=== PATIENT | female | born 1995 | race Caucasian/White ===

== ENCOUNTER 2018-10-27 13:29 | Outpatient (CLI) | payer OTHER ==
--- NOTE | 2018-10-28 14:17 | XRAY Report ---
Reason: NECK PAIN,ACUTE Procedure Date: 10/27/2018 Accession Number: [id number] / [id number] Procedure: WCP - Cervical Spine 2 View CPT Code: FULL RESULT: EXAM: CERVICAL SPINE RADIOGRAPHY EXAM DATE: 10/27/2018 01:42 PM. CLINICAL HISTORY: Neck pain, acute. COMPARISONS: None. TECHNIQUE: 3 views. FINDINGS: Alignment: Straightening of the normal cervical lordosis. No spondylolisthesis. No scoliosis. Bones: No acute fracture. No bony lesions. Odontoid is intact where visualized. There are small bilateral C7 cervical ribs. Disks: Normal. Disk heights are maintained. Facets: No degenerative disease. Soft Tissues: Normal. No prevertebral soft tissue swelling. The visualized lung apices are clear. IMPRESSION: 1. Small bilateral C7 cervical ribs. Otherwise, no other cervical spine abnormalities are identified. RADIA
== END 2018-10-27 13:30 | disposition home or self-care (01) ==
LOC: DI.WCP 13:29
PROVIDERS: ATTEND Family Medicine
DX: M54.2 Cervicalgia (principal)
CPT/HCPCS: 72040

== ENCOUNTER 2019-01-21 08:00 | Outpatient (CLI) | payer OTHER | END 2019-01-21 23:59 | disposition home or self-care (01) | LOC: LAB.WCP 08:00 | PROVIDERS: ATTEND Physician Assistant | DX: F41.9 Anxiety disorder, unspecified (principal) | CPT/HCPCS: 36415; 84443 ==

== ENCOUNTER 2019-08-02 20:32 | Emergency (ER) | payer OTHER ==
[2019-08-02] MEDS: LIDOCAINE VISCOUS 2% 15 ML UDC MM STA (21:10)
[2019-08-02] MEDS: MAG HYDROX/AL HYDROX/SIMETH 30 ML UDC PO STA (21:10)
[2019-08-02 21:16] LABS: BASOPHILS % (AUTO) 0.3 %; EOSINOPHILS # (AUTO) 0.2 10^3/uL (0.0-0.7); EOSINOPHILS % (AUTO) 2.7 %; HGB - HEMOGLOBIN 12.6 g/dL (12.0-16.0); LYMPHOCYTES # (AUTO) 2.2 10^3/uL (1.5-3.5); LYMPHOCYTES % (AUTO) 32.3 %; MEAN CORPUSCULAR HEMOGLOBIN 29.9 pg (27.0-31.0); MEAN CORPUSCULAR HGB CONC 32.8 g/dL (32.0-36.0); MEAN PLATELET VOLUME 9.6 fL (7.9-10.8); MONOCYTES # (AUTO) 0.5 10^3/uL (0.0-1.0); MONOCYTES % (AUTO) 7.2 %; NEUTROPHILS % (AUTO) 57.2 %; PLT - PLATELET COUNT 230 10^3/uL (130-450); RED BLOOD COUNT 4.22 10^6/uL (4.20-5.40); RED CELL DISTRIBUTION WIDTH 13.1 % (12.0-15.0); WHITE BLOOD COUNT 6.9 x10^3/uL (4.8-10.8)
--- NOTE | 2019-08-02 21:19 | ED Physician Documentation ---
PD HPI CHEST PAIN - Stated complaint Stated Complaint: CP - Chief complaint Chief Complaint: Cardiac - History obtained from History obtained from: Patient - History of Present Illness Timing - onset: Other (24-year-old woman who about an hour ago started having intermittent sharp pain of the sternum and and under both breasts and around to the back. Is worse when she takes a deep breath. It lasts for minutes at a time and has been coming and going without particular inciting or relieving factors. She was rest when it started. She denies shortness of breath, calf pain, control use, pedal edema. No cough. She is never had anything like this before. She has a history of asthma. No family heart history.) Review of Systems Constitutional: denies: Fever, Chills Throat: denies: Sore throat Cardiac: reports: Chest pain / pressure. denies: Palpitations, Pedal edema, Calf pain Respiratory: denies: Dyspnea, Cough GI: denies: Abdominal Pain PD PAST MEDICAL HISTORY - Past Medical History Past Medical History: Yes Other Past Medical History: HHT - Past Surgical History Past Surgical History: Yes General: Cholecystectomy /[employer]ER: section - Present Medications Home Medications: Ambulatory Orders Medication Instructions Recorded Confirmed Albuterol Sulfate [Albuterol 8.5 gm IH DAILY 08/02/19 08/02/19 Sulfate Hfa] Famotidine [Pepcid] 20 mg PO BID #60 tablet 08/02/19 Fluticasone/Salmeterol [Advair 1 each IH DAILY 08/02/19 08/02/19 100-50 Diskus] Montelukast [Singulair] 10 mg PO QPM 08/02/19 08/02/19 Sertraline [Zoloft] 25 mg PO DAILY 08/02/19 08/02/19 Tiotropium [place] [Spiriva] 1 puffs INH DAILY 08/02/19 08/02/19 - Allergies Allergies/Adverse Reactions: Allergies Allergy/AdvReac Type Severity Reaction Status Date / Time No Known Drug Allergies Allergy Verified 08/02/19 20:40 - Social History Does the pt smoke?: No Smoking Status: Never smoker Does the pt drink ETOH?: No Does the pt have substance abuse?: No - Immunizations Immunizations are current?: Yes - POLST Patient has POLST: No PD ED PE NORMAL - Vitals Vital signs reviewed: Yes - General General: Alert and oriented X 3, No acute distress - HEENT HEENT: Pharynx benign - Neck Neck: Supple, no meningeal sign, No bony TTP - Cardiac Cardiac: RRR, No murmur - Respiratory Respiratory: No respiratory distress, Clear bilaterally, Other (Sternum nontender) - Abdomen Abdomen: Other (Abdomen nontender, no she is status post remote cholecystectomy) - Extremities Extremities: No edema, No calf tenderness / cord - Neuro Neuro: Alert and oriented X 3, Normal speech Results - Vitals Vitals: Vital Signs - 24 hr 08/02/19 08/02/19 08/02/19 20:36 20:53 20:57 Temperature 36.8 C Heart Rate 97 74 83 Respiratory 18 12 13 Rate Blood Pressure 121/91 H 109/75 100/75 O2 Saturation 99 100 100 08/02/19 21:27 Temperature Heart Rate 87 Respiratory 12 Rate Blood Pressure 105/65 O2 Saturation 100 Oxygen O2 Source Room air - EKG (time done) 2046 Rate: Rate (enter#) (86) Rhythm: NSR [place]: Normal Intervals: Normal [place] QRS: Normal Ischemia: Normal ST segments Computer interpretation: Agree with computer - Labs Labs: Laboratory Tests 08/02/19 08/02/19 08/02/19 21:10 21:10 21:10 WBC 6.9 RBC 4.22 Hgb 12.6 Hct 38.4 MCV 91.0 MCH 29.9 MCHC 32.8 RDW 13.1 Plt Count 230 MPV 9.6 Neut # (Auto) 4.0 Lymph # (Auto) 2.2 [place] # (Auto) 0.5 Eos # (Auto) 0.2 Baso # (Auto) 0.0 Absolute Nucleated RBC 0.00 Nucleated RBC % 0.0 D-Dimer 358.5 H Sodium 136 Potassium 3.4 L Chloride 103 Carbon Dioxide 23 Anion Gap 10.0 BUN 15 Creatinine 0.5 Estimated GFR (MDRD) 150 Glucose 91 Calcium 9.2 Total Bilirubin 0.7 AST 25 ALT 27 Alkaline Phosphatase 54 Troponin I High Sens Total Protein 8.3 H Albumin 4.5 Globulin 3.8 Albumin/Globulin Ratio 1.2 Lipase 32 08/02/19 21:10 WBC RBC Hgb Hct MCV MCH MCHC RDW Plt Count MPV Neut # (Auto) Lymph # (Auto) [place] # (Auto) Eos # (Auto) Baso # (Auto) Absolute Nucleated RBC Nucleated RBC % D-Dimer Sodium Potassium Chloride Carbon Dioxide Anion Gap BUN Creatinine Estimated GFR (MDRD) Glucose Calcium Total Bilirubin AST ALT Alkaline Phosphatase Troponin I High Sens < 2.3 L Total Protein Albumin Globulin Albumin/Globulin Ratio Lipase PD MEDICAL DECISION MAKING - ED course ED course: 24-year-old woman with acute atypical chest pain. Heart score is 0. Was borderline tachycardic and therefore d-dimer was done and mildly positive. Follow-up CT ordered. Preliminary view by me suggests no pathology there. Care to Dr. Jean Baptiste at shift change to follow-up on CT. She can be safely discharged in my opinion if the CT is negative. She did feel much better after a GI cocktail. Given the episodic nature and quality I suspect she is having esophageal spasm. Departure - Departure Clinical Impression: Atypical chest pain Condition: Good Record reviewed to determine appropriate education?: Yes Instructions: ED Chest Pain NonCardiac Prescriptions: Famotidine [Pepcid] 20 mg PO BID #60 tablet Comments: Call your doctor to arrange a follow-up appointment, make the next available appointment. In the interim, return anytime if worse or if new symptoms develop.
--- NOTE | 2019-08-02 21:26 | XRAY Report ---
Reason: chest pain Procedure Date: 08/02/2019 Accession Number: [id number] / [id number] Procedure: XR - Chest 2 View X-Ray CPT Code: 04364 Final Report FULL RESULT: EXAM: CHEST RADIOGRAPHY EXAM DATE: 08/02/2019 09:19 PM. CLINICAL HISTORY: Chest pain. COMPARISON: None. TECHNIQUE: 2 views. FINDINGS: Lungs/Pleura: No focal opacities evident. No pleural effusion. No pneumothorax. Normal volumes. Mediastinum: Heart and mediastinal contours are unremarkable. Other: Right upper quadrant clips. ECG leads overlie the chest. IMPRESSION: No acute cardiopulmonary abnormality. RADIA
[2019-08-02 21:28] LABS: ALBUMIN 4.5 g/dL (3.2-5.5); ALBUMIN/GLOBULIN RATIO 1.2 (1.0-2.2); BILIRUBIN,TOTAL 0.7 mg/dL (0.2-1.0); CALCIUM 9.2 mg/dL (8.5-10.3); CREATININE 0.5 mg/dL (0.4-1.0); TOTAL PROTEIN 8.3 g/dL (6.7-8.2)
[2019-08-02] MEDS ORDERED: IOVERSOL 320 100 ML VIAL IVP ONE (21:57)
[2019-08-02] MEDS: IOVERSOL 320 100 ML VIAL IVP ONE (22:28)
--- NOTE | 2019-08-02 23:06 | CT Report ---
Reason: chest pain, aorta protocol Procedure Date: 08/02/2019 Accession Number: [id number] / [id number] Procedure: CT - ANGIO CHEST W/WO CPT Code: Final Report FULL RESULT: EXAM: CT ANGIOGRAM CHEST EXAM DATE: 08/02/2019 10:25 PM. CLINICAL HISTORY: Chest pain, aorta protocol. COMPARISON: None. TECHNIQUE: Routine helical imaging was performed through the chest in the pulmonary arterial phase. IV Contrast: OPTIRAY 320. Reconstructions: Coronal 3-D MIP reconstructions. Sagittal and coronal. In accordance with CT protocol optimization, one or more of the following dose reduction techniques were utilized for this exam: automated exposure control, adjustment of mA and/or KV based on patient size, or use of iterative reconstructive technique. FINDINGS: Pulmonary Arteries: Diagnostic quality: Adequate through the segmental arteries. No evidence for acute or chronic pulmonary emboli. RV/LV is within normal limits. There is no interventricular septal bowing. There is no reflux of contrast material in the IVC. Lungs/Pleura: No consolidation, nodules, or edema. No effusions or pneumothorax. Mediastinum: Normal. No cardiac enlargement or adenopathy. Thoracic Aorta: Unremarkable. Upper Abdomen: Unremarkable. Other: None. IMPRESSION: Normal pulmonary CT angiogram. No pulmonary emboli. RADIA
[2019-08-02 23:26] VITALS: BP 102/71
--- NOTE | 2019-08-02 23:31 | ED Physician Documentation ---
ED Addendum - Addendum Addendum: 08/02/19 23:31 Received s/o from Dr. Owens at end of his shift and pending CT angio results. Patient presented to ED for sharp pleuritic CP that started approximately [address] angio results interpreted by radiologist as "normal pulmonary CT angiogram. No pulmonary emboli." I discussed this result w/patient. She is AAOx3 and in NAD. Vital signs stable including 97% pulse ox room air and normal pulse rate. She is comfortable with d/c home. She asks about taking an antacid, and RN provides her with famotidine rx printed by Dr. Owens. 08/02/19 23:35
== END 2019-08-02 23:26 | disposition home or self-care (01) ==
LOC: ED 20:32
DX: R07.89 Other chest pain (principal); J45.909 Unspecified asthma, uncomplicated; R79.1 Abnormal coagulation profile
CPT/HCPCS: 36415; 71046; 71275; 80053; 83690; 84484; 85025; 85379; 93005; 99284; A9270; Q9967

== ENCOUNTER 2020-01-12 08:00 | Outpatient (CLI) | payer OTHER | END 2020-01-12 23:59 | disposition home or self-care (01) | LOC: LAB.R 08:00 | PROVIDERS: ATTEND Physician Assistant | DX: R30.0 Dysuria (principal) | CPT/HCPCS: 87086 ==

== ENCOUNTER 2020-04-23 09:24 | Outpatient (CLI) | payer OTHER ==
[2020-04-23] MEDS ORDERED: ALBUTEROL 1 PUFF INH STA (11:17)
== END 2020-04-23 09:25 | disposition home or self-care (01) ==
LOC: RT 09:24
PROVIDERS: ATTEND Family Medicine
DX: J45.40 Moderate persistent asthma, uncomplicated (principal)
CPT/HCPCS: 94060; 94729

== ENCOUNTER 2020-05-12 09:03 | Outpatient (CLI) | payer OTHER ==
[2020-05-12] MEDS ORDERED: GADOBUTROL 7.5 MMOL/7.5 ML VIAL ONE (09:59)
[2020-05-12] MEDS ORDERED: GADOBUTROL 7.5 MMOL/7.5 ML VIAL IVP ONE (10:32)
--- NOTE | 2020-05-12 10:49 | MRI Report ---
PROCEDURE: Brain W/WO INDICATIONS: HEREDITARY HEMORRHAGIC TELANGIECTASIA CONTRAST: IV CONTRAST: Gadavist ml: 7 TECHNIQUE: Noncontrast axial T1 spin echo, axial T2 fast spin echo, sagittal and axial FLAIR, coronal T2 fast sp in echo, axial gradient echo, axial diffusion and ADC through the brain. After the administration of contrast, axial and coronal T1 spin echo with fat saturation through the brain. COMPARISON: None. FINDINGS: Image quality: Excellent. CSF spaces: Basal cisterns are patent. No extra-axial fluid collections. Ventricles are normal in size and shape. Brain: No midline shift. No intracranial bleeds or masses. No abnormal intracranial enhancement. There is cerebral volume loss for age. There is periventricular white matter chronic small vessel is chemic change. The brainstem appears normal. Diffusion-weighted images demonstrate no acute ischemi c insults. No chronic ischemic insults. Normal intravascular flow voids are present. Skull and face: Calvarial marrow is normal in signal. Orbits appear normal. Sinuses: Minimal to mild areas of mucosal thickening can be seen within the paranasal sinuses. No sig nificant abnormal fluid can be seen within the mastoid air cells or within the middle ear cavities. IMPRESSION: Unremarkable intracranial study. No areas of abnormal enhancement can be seen. To the limits of this standard protocol study, no findi ngs of AVM can be seen. Reviewed by: Eliecer Kulkarni MD on 05/12/2020 9:48 AM [facility] Approved by: Eliecer Kulkarni MD on 05/12/2020 9:48 AM [facility] Station ID: [id number]
== END 2020-05-12 09:04 | disposition home or self-care (01) ==
LOC: DI 09:03
PROVIDERS: ATTEND Physician Assistant
DX: I78.0 Hereditary hemorrhagic telangiectasia (principal)
CPT/HCPCS: 70553; 93306; A9585

== ENCOUNTER 2020-06-13 08:00 | Outpatient (CLI) | payer OTHER ==
[2020-06-13 18:07] LABS: BASOPHILS % (AUTO) 0.4 %; EOSINOPHILS # (AUTO) 0.1 10^3/uL (0.0-0.7); EOSINOPHILS % (AUTO) 1.1 %; HCT - HEMATOCRIT 40.4 % (37.0-47.0); LYMPHOCYTES # (AUTO) 1.5 10^3/uL (1.5-3.5); LYMPHOCYTES % (AUTO) 22.1 %; MEAN CORPUSCULAR HEMOGLOBIN 29.6 pg (27.0-31.0); MEAN CORPUSCULAR HGB CONC 32.2 g/dL (32.0-36.0); MEAN PLATELET VOLUME 11.1 fL (7.9-10.8); MONOCYTES # (AUTO) 0.4 10^3/uL (0.0-1.0); MONOCYTES % (AUTO) 6.3 %; NEUTROPHILS # (AUTO) 4.9 10^3/uL (1.5-6.6); NEUTROPHILS % (AUTO) 69.8 %; PLT - PLATELET COUNT 271 10^3/uL (130-450); RED BLOOD COUNT 4.39 10^6/uL (4.20-5.40); RED CELL DISTRIBUTION WIDTH 12.7 % (12.0-15.0)
[2020-06-13 18:25] LABS: ALBUMIN 4.7 g/dL (3.2-5.5); ALBUMIN/GLOBULIN RATIO 1.3 (1.0-2.2); BILIRUBIN,TOTAL 0.7 mg/dL (0.2-1.0); CALCIUM 9.5 mg/dL (8.5-10.3); CREATININE 0.6 mg/dL (0.4-1.0); POTASSIUM 3.2 mmol/L (3.5-5.0); TOTAL PROTEIN 8.3 g/dL (6.7-8.2)
[2020-06-13 18:33] LABS: THYROID STIMULATING HORMONE 2.38 uIU/mL (0.34-5.60)
== END 2020-06-13 23:59 | disposition home or self-care (01) ==
LOC: LAB.WCP 08:00
PROVIDERS: ATTEND Physician Assistant Medical
DX: I78.0 Hereditary hemorrhagic telangiectasia (principal); Z84.81 Family history of carrier of genetic disease; F41.9 Anxiety disorder, unspecified; F32.9 Major depressive disorder, single episode, unspecified
CPT/HCPCS: 36415; 80053; 84443; 85025

== ENCOUNTER 2020-08-04 16:36 | Outpatient (CLI) | payer OTHER ==
[2020-08-04 18:12] LABS: BASOPHILS % (AUTO) 0.3 %; EOSINOPHILS # (AUTO) 0.1 10^3/uL (0.0-0.7); EOSINOPHILS % (AUTO) 1.9 %; HCT - HEMATOCRIT 39.4 % (37.0-47.0); HGB - HEMOGLOBIN 12.8 g/dL (12.0-16.0); LYMPHOCYTES # (AUTO) 1.6 10^3/uL (1.5-3.5); LYMPHOCYTES % (AUTO) 23.5 %; MEAN CORPUSCULAR HEMOGLOBIN 29.4 pg (27.0-31.0); MEAN CORPUSCULAR HGB CONC 32.5 g/dL (32.0-36.0); MEAN CORPUSCULAR VOLUME 90.6 fL (81.0-99.0); MEAN PLATELET VOLUME 10.6 fL (7.9-10.8); MONOCYTES # (AUTO) 0.6 10^3/uL (0.0-1.0); MONOCYTES % (AUTO) 8.8 %; NEUTROPHILS # (AUTO) 4.4 10^3/uL (1.5-6.6); NEUTROPHILS % (AUTO) 65.2 %; PLT - PLATELET COUNT 277 10^3/uL (130-450); RED BLOOD COUNT 4.35 10^6/uL (4.20-5.40); RED CELL DISTRIBUTION WIDTH 13.1 % (12.0-15.0); WHITE BLOOD COUNT 6.7 x10^3/uL (4.8-10.8)
[2020-08-04 18:19] LABS: CALCIUM 9.3 mg/dL (8.5-10.3); CREATININE 0.5 mg/dL (0.4-1.0); POTASSIUM 3.7 mmol/L (3.5-5.0)
== END 2020-08-04 23:59 | disposition home or self-care (01) ==
LOC: LAB.N 16:36
PROVIDERS: ATTEND Physician Assistant Medical
DX: Z32.00 Encounter for pregnancy test, result unknown (principal); Z86.2 Personal history of diseases of the blood and blood-forming organs and certain disorders involving the immune mechanism
CPT/HCPCS: 36415; 80048; 84702; 85025

== ENCOUNTER 2020-08-08 08:00 | Outpatient (CLI) | payer OTHER ==
[2020-08-08 16:11] LABS: MUDS CUTOFF CONCENTRATIONS CUTOFF CONC BELOW:
[2020-08-08 16:39] LABS: BILIRUBIN,URINE NEGATIVE (NEGATIVE); GLUCOSE, URINE (UA) NEGATIVE (NEGATIVE); KETONES,URINE (UA) NEGATIVE (NEGATIVE); LEUKOCYTE ESTERASE, URINE NEGATIVE (NEGATIVE); NITRITE,URINE NEGATIVE (NEGATIVE); OCCULT BLOOD,URINE TRACE-INTA (NEGATIVE); PH,URINE 5.5 PH (5.0-7.5); PROTEIN,URINE NEGATIVE (NEGATIVE); UROBILINOGEN,URINE 0.2 (NORMAL) E.U./dL (NORMAL)
[2020-08-08 16:42] LABS: CLARITY,URINE CLEAR (CLEAR)
[2020-08-08 16:44] LABS: AMPHETAMINE SCREEN,URINE NEGATIVE (NEGATIVE); BENZODIAZEPINES SCREEN, URINE NEGATIVE (NEGATIVE); COCAINE SCREEN URINE NEGATIVE (NEGATIVE); METHADONE SCREEN, URINE NEGATIVE (NEGATIVE); METHAMPHETAMINES SCREEN, URINE NEGATIVE (NEGATIVE); OPIATE SCREEN, URINE NEGATIVE (NEGATIVE); THC CANNABINOID SCREEN, URINE NEGATIVE (NEGATIVE); TRICYCLIC ANTIDEPRESSANT,URINE NEGATIVE (NEGATIVE)
[2020-08-08 16:45] LABS: BARBITURATE SCREEN,UR NEGATIVE (NEGATIVE); OXYCODONE SCREEN, URINE NEGATIVE (NEGATIVE); PROPOXYPHENE SCREEN, URINE NEGATIVE (NEGATIVE)
[2020-08-08 17:03] LABS: BACTERIA,URINE Many /HPF (None Seen); RBC,URINE 0-5 /HPF (0-5); SQUAMOUS EPITHELIAL CELL,UR MANY Squamous (<= Few); WBC,URINE 0-3 /HPF (0-5)
== END 2020-08-08 23:59 | disposition home or self-care (01) ==
LOC: LAB.WC 08:00
PROVIDERS: ATTEND Obstetrics & Gynecology
DX: Z32.01 Encounter for pregnancy test, result positive (principal)
CPT/HCPCS: 80306; 81001; 87086

== ENCOUNTER 2020-08-12 18:58 | Outpatient (CLI) | payer OTHER ==
--- NOTE | 2020-08-13 10:39 | Ultrasound Report ---
PROCEDURE: OB First Trimester w/TV INDICATIONS: POSITIVE TEST OUTSIDE/PRIOR DATING DATA: Last menstrual period (LMP): 06/21/2020. LMP-based estimated date of delivery (JANN): 03/28/2021. First dating scan (date and location): 08/12/2020. Estimated date of delivery (JANN) from first dating scan: 03/31/2021. TECHNIQUE: Real-time scanning was performed of the fetus and maternal pelvic organs, with image documentation. Endovaginal scanning was also performed to better visualize the fetus and maternal ovaries. COMPARISON: None. FINDINGS: Embryo: There is a single living intrauterine gestation with the estimated gestational age 7 weeks 0 day. cardiac activity is present with heart rate 133 BPM. A yolk sac is present. A small subchorionic bleed is present measuring 1.8 x 0.4 x 0.5 cm. Cervix is closed. Measurement variability in dating: +/- 4 weeks by LMP, +/- 7 days by mean sac diameter (use before 6 weeks gestation if crown-rump length not able to be measured), +/- 5 days by crown-rump length (6-12 weeks gestation). Maternal organs: There is a corpus luteal cyst in the right ovary measuring 1.2 x 0.9 x 0.9 cm. Ovari es are grossly normal. IMPRESSION: 1. A single living IUP with the estimated gestational age 7 weeks 0 day. Ultrasound JANN 03/31/2021. 2. A small subchorionic bleed is present. 3. Cervix is closed. 4. A corpus luteal cyst in the right ovary. Ovaries are grossly normal. Reviewed by: Jason Vogel MD on 08/13/2020 10:37 AM PDT Approved by: Jason Vogel MD on 08/13/2020 10:37 AM PDT Station ID: [id number]
== END 2020-08-12 18:59 | disposition home or self-care (01) ==
LOC: DI 18:58
PROVIDERS: ATTEND Obstetrics & Gynecology
DX: O20.8 Other hemorrhage in early pregnancy (principal); O34.81 Maternal care for other abnormalities of pelvic organs, first trimester; N83.11 Corpus luteum cyst of right ovary; Z3A.01 Less than 8 weeks gestation of pregnancy

== ENCOUNTER 2020-08-29 08:00 | Outpatient (CLI) | payer OTHER ==
[2020-08-29 22:11] LABS: CHLAMYDIA TRACHOMATIS DNA NEGATIVE (NEGATIVE); NEISSERIA GONORRHOEAE DNA NEGATIVE (NEGATIVE); TRICHOMONAS VAGINALIS DNA NEGATIVE (NEGATIVE)
== END 2020-08-29 23:59 | disposition home or self-care (01) ==
LOC: LAB.R 08:00
PROVIDERS: ATTEND Obstetrics & Gynecology
DX: Z36.89 Encounter for other specified antenatal screening (principal)
CPT/HCPCS: 87491; 87591; 87661

== ENCOUNTER 2020-08-29 10:08 | Outpatient (CLI) | payer OTHER ==
[2020-08-29 10:24] LABS: BASOPHILS % (AUTO) 0.3 %; EOSINOPHILS # (AUTO) 0.1 10^3/uL (0.0-0.7); HGB - HEMOGLOBIN 12.6 g/dL (12.0-16.0); LYMPHOCYTES # (AUTO) 1.4 10^3/uL (1.5-3.5); LYMPHOCYTES % (AUTO) 20.4 %; MEAN CORPUSCULAR HGB CONC 33.2 g/dL (32.0-36.0); MEAN CORPUSCULAR VOLUME 90.5 fL (81.0-99.0); MEAN PLATELET VOLUME 9.8 fL (7.9-10.8); MONOCYTES # (AUTO) 0.5 10^3/uL (0.0-1.0); MONOCYTES % (AUTO) 7.3 %; NEUTROPHILS # (AUTO) 4.7 10^3/uL (1.5-6.6); NEUTROPHILS % (AUTO) 70.7 %; PLT - PLATELET COUNT 217 10^3/uL (130-450); RED CELL DISTRIBUTION WIDTH 13.3 % (12.0-15.0); WHITE BLOOD COUNT 6.7 x10^3/uL (4.8-10.8)
[2020-08-30 07:42] LABS: HIV AG/AB 4TH GEN NON-REACTIVE (NON-REACTIVE)
[2020-08-30 12:07] LABS: HEPATITIS B SURFACE ANTIGEN NON-REACTIVE (NON-REACTIVE)
[2020-08-30 12:08] LABS: HEPATITIS C ANTIBODY NON-REACTIVE (NON-REACTIVE)
== END 2020-08-29 10:09 | disposition home or self-care (01) ==
LOC: LAB 10:08
PROVIDERS: ATTEND Obstetrics & Gynecology
DX: Z36.89 Encounter for other specified antenatal screening (principal)
CPT/HCPCS: 36415; 85025; 86592; 86762; 86787; 86803; 86850; 86900; 86901; 87340; 87389; 87491; 87591; 87661

== ENCOUNTER 2020-12-28 19:15 | Outpatient (CLI) | payer OTHER ==
[2020-12-28 19:51] LABS: BASOPHILS % (AUTO) 0.3 %; EOSINOPHILS # (AUTO) 0.1 10^3/uL (0.0-0.7); EOSINOPHILS % (AUTO) 0.9 %; HCT - HEMATOCRIT 34.5 % (37.0-47.0); HGB - HEMOGLOBIN 11.3 g/dL (12.0-16.0); LYMPHOCYTES # (AUTO) 1.8 10^3/uL (1.5-3.5); LYMPHOCYTES % (AUTO) 16.2 %; MEAN CORPUSCULAR HEMOGLOBIN 30.9 pg (27.0-31.0); MEAN CORPUSCULAR HGB CONC 32.8 g/dL (32.0-36.0); MEAN CORPUSCULAR VOLUME 94.3 fL (81.0-99.0); MEAN PLATELET VOLUME 9.3 fL (7.9-10.8); MONOCYTES # (AUTO) 0.7 10^3/uL (0.0-1.0); MONOCYTES % (AUTO) 6.3 %; NEUTROPHILS # (AUTO) 8.4 10^3/uL (1.5-6.6); NEUTROPHILS % (AUTO) 75.8 %; PLT - PLATELET COUNT 208 10^3/uL (130-450); RED BLOOD COUNT 3.66 10^6/uL (4.20-5.40); RED CELL DISTRIBUTION WIDTH 13.2 % (12.0-15.0)
[2020-12-28 19:57] LABS: BILIRUBIN,URINE NEGATIVE (NEGATIVE); GLUCOSE, URINE (UA) NEGATIVE (NEGATIVE); KETONES,URINE (UA) NEGATIVE (NEGATIVE); LEUKOCYTE ESTERASE, URINE SMALL (NEGATIVE); NITRITE,URINE NEGATIVE (NEGATIVE); OCCULT BLOOD,URINE MODERATE (NEGATIVE); PH,URINE 6.5 PH (5.0-7.5); PROTEIN,URINE NEGATIVE (NEGATIVE); UROBILINOGEN,URINE 0.2 (NORMAL) E.U./dL (NORMAL)
[2020-12-28 20:01] LABS: CLARITY,URINE CLEAR (CLEAR)
[2020-12-28 20:03] LABS: ALBUMIN 3.4 g/dL (3.2-5.5); ALBUMIN/GLOBULIN RATIO 0.9 (1.0-2.2); BILIRUBIN,TOTAL 0.5 mg/dL (0.2-1.0); CALCIUM 9.1 mg/dL (8.5-10.3); CREATININE 0.6 mg/dL (0.4-1.0); POTASSIUM 3.5 mmol/L (3.5-5.0); TOTAL PROTEIN 7.4 g/dL (6.7-8.2)
[2020-12-28 20:15] LABS: BACTERIA,URINE Few /HPF (None Seen); RBC,URINE 0-5 /HPF (0-5); SQUAMOUS EPITHELIAL CELL,UR RARE Squamous (<= Few)
[2020-12-28 20:47] VITALS: BP 114/66
--- NOTE | 2020-12-29 10:38 | PROVIDER PROGRESS NOTE ---
- HPI Chief Complaint: Other (Cramping and right sided back pain.) Current : Current EDU 03/28/21 Gestation 27 Weeks and 1 Days 3 Para 2 Vital Signs Temperature 98.2 F 12/28/20 19:30 Heart Rate 85 12/28/20 19:30 Respiratory Rate 18 12/28/20 19:30 Blood Pressure 114/66 12/28/20 19:30 O2 Saturation 100 12/28/20 19:30 Temperature 208.8 F H 12/28/20 21:27 Heart Rate 84 12/28/20 21:27 Respiratory Rate 18 12/28/20 21:27 Blood Pressure 114/66 12/28/20 21:27 O2 Saturation 100 12/28/20 21:27 - Exam 25yo at 27 weeks 3/7 days presented with right sided low back pain and cramping in her lower abdomen. Patient has had two prior Sections and would like to . Patient had care in [place], but moved back in August and cannot obtain [facility] appointment until January. Patient states she has had cramping all day. Patient reports good movement. Patient denies Contractions, SROM or vaginal bleeding. Patient denies dysuria, urinary frequency or any other urinary symptoms. O- VSS, afebrile. General: Patient is resting comfortably on stretcher. Chest: Clear to auscultation, no rales, wheezes or rhonchi. No CVA tenderness Abdomen: Soft, non-tender to palpation. Gravid, non-tender. Extremities: No edema, no calf tenderness Reviewed CBC and CMP all values are within normal range. UA had bacteria and was sent for culture. NST: Baseline heart tones 125 with moderate variability and Accelerations of 10X10. No decelerations. No contractions, some irritability present. Reactive NST, Category I monitor strip. A-IUP 27 3, Possible UTI, Cramping in lower abdomen Previous times two, Desires P- Call patient with culture results. Patient to attempt to get an earlier appointment. - Procedures OB Procedure Performed: NST
== END 2020-12-28 21:30 | disposition home or self-care (01) ==
LOC: WFO 19:15 → FBP 19:16 → WFO 21:30
PROVIDERS: ATTEND Obstetrics & Gynecology
DX: O99.891 Other specified diseases and conditions complicating pregnancy (principal); R10.30 Lower abdominal pain, unspecified; Z3A.27 27 weeks gestation of pregnancy
CPT/HCPCS: 36415; 80053; 81001; 81003; 85025; 87086; 99213; 99215

== ENCOUNTER 2020-12-31 15:41 | Outpatient (CLI) | payer OTHER ==
[2020-12-31 17:46] LABS: BILIRUBIN,URINE NEGATIVE (NEGATIVE); GLUCOSE, URINE (UA) NEGATIVE (NEGATIVE); KETONES,URINE (UA) >=80 mg/dL (NEGATIVE); LEUKOCYTE ESTERASE, URINE NEGATIVE (NEGATIVE); NITRITE,URINE NEGATIVE (NEGATIVE); OCCULT BLOOD,URINE NEGATIVE (NEGATIVE); PH,URINE 6.5 PH (5.0-7.5); PROTEIN,URINE NEGATIVE (NEGATIVE); UROBILINOGEN,URINE 0.2 (NORMAL) E.U./dL (NORMAL)
[2020-12-31 17:59] LABS: BACTERIA,URINE Few /HPF (None Seen); CLARITY,URINE HAZY (CLEAR); RBC,URINE 0-5 /HPF (0-5); SQUAMOUS EPITHELIAL CELL,UR MOD Squamous (<= Few)
== END 2020-12-31 15:42 | disposition home or self-care (01) ==
LOC: LAB.N 15:41
PROVIDERS: ATTEND Obstetrics & Gynecology
DX: R10.2 Pelvic and perineal pain (principal)
CPT/HCPCS: 81001; 87086

== ENCOUNTER 2021-03-13 13:16 | Outpatient (CLI) | payer OTHER ==
[2021-03-13 14:24] LABS: RUPTURE OF MEMBRANES PLUS NEGATIVE (NEGATIVE)
[2021-03-13 15:30] VITALS: BP 107/68
[2021-03-13 19:25] LABS: BACTERIAL VAGINOSIS DNA NEGATIVE (NEGATIVE); CANDIDA GLABRATA DNA NEGATIVE (NEGATIVE); CANDIDA GROUP DNA POSITIVE (NEGATIVE); CANDIDA KRUSEI DNA NEGATIVE (NEGATIVE); TRICHOMONAS VAGINALIS DNA NEGATIVE (NEGATIVE)
--- NOTE | 2021-04-03 20:14 | PROVIDER PROGRESS NOTE ---
- HPI Chief Complaint: Leakage of vaginal fluid Current : Current EDU 03/28/21 Gestation 37 Weeks and 6 Days 3 Para 0 Vital Signs Temperature 98.3 F 03/13/21 13:32 Heart Rate 77 03/13/21 13:32 Respiratory Rate 18 03/13/21 13:32 Blood Pressure 105/63 03/13/21 13:32 O2 Saturation 100 03/13/21 13:32 Temperature 98.3 F 03/13/21 15:28 Heart Rate 75 03/13/21 15:28 Respiratory Rate 18 03/13/21 15:28 Blood Pressure 107/68 03/13/21 15:28 O2 Saturation 100 03/13/21 13:32 - Procedures OB Procedure Performed: NST NST Procedure: NST Procedure Start Date 03/13/21 Start Time 14:08 Stop Time 14:45 Vibroacoustic Stimulation Used No Patient States Movement Yes EFM 120 mod nader 15x15 accels no decels TOCO: quiet Service Date of procedure: 03/13/21 - Plan Plan: ID: Patient is a 26 yo at 37+6 wga here for rule out rupture of membranes. HPI: Patient folowed bu [facility] as desires TOLAC but has had 2 prior ; she is aware that she cannot TOLAC at this facility. Reported small amount of fluid leakage this am. Reports increased clear vaginal discharge since 03/09, no discrete gush of fluid or vaginal bleeding. Slight yellow tinge to discharge.Does not have continued passage of fluid. No cramping or bleeding. + FM Also has asthma and uses Advair; concerned about use in . First affected by SROM at 36 weeks. Was told she had to have the c- section due to infection. She was 15 and this was after 5 days of prolonged rupture. She is unsure if there was a hemorrhage. She had to under [place] for the delivery. The second dleivery was a repeat at age 21. No issues. PMH: Has a blood disorder- HHT but it not righ risk. Hereditary telegiectasia Severe asthma. Has never been intubated. Sees Pst Supervisor . Past Surgical History: 2 C sections, 2011, 2017 breast augmentation cholecystectomy 2010 Family History Summary: Hypertension for Father Other Cancer for Maternal Grandmother, brain cancer - Social History Summary: Patient has never smoked. Patient has never used smokeless tobacco. Passive Smoke: N Alcohol Use: N Drug Use: N HIV/High Risk: N Regular Exercise: Y Hx Domestic Abuse: N Roman Catholic Affecting Care: N Sexually Active: Y Lives in [place] with and children Works at [employer] in [place] [employer] Safe at home ROS: As per HPI, otherwise remaining systems are negative PE: VS: 98.3 77 105/63 18 100% GEN: NAD HEENT: NCAT CV: RRR RESP: nl effort CTAb ABD: gravis, S&NT/ND EXT: WWP, no LE edema PSYCH: appropriate affect NEURO: A&O ROM plus neg Vaginitis panel positive for yeast; clotrimazole rx provided A/P: Patient is a 26 yo at 37+6 wga here for rule out rupture of membranes. RULE OUT ROM: No evidence of membrane rupture FWB: Cat I tracing MOD: Counseled patient to move to [place] in coming weeks for planned TOLAC -May not be able to transfer patient if she presents in labor and cannot offer TOLAC at this facility VAGINITIS: Affirm panel positive for yeast. Provided with RX for clotrimazole FU with primary OB provider Warning signs reviewed NST read on 03/13/21 DOS: 03/13/21 Cat I tracing DX: False labor IUP at 37+6 wga
== END 2021-03-13 14:45 | disposition home or self-care (01) ==
LOC: WFO 13:16 → FBP 13:17 → WFO 14:45
PROVIDERS: ATTEND Obstetrics & Gynecology
DX: O47.1 False labor at or after 37 completed weeks of gestation (principal); O98.813 Other maternal infectious and parasitic diseases complicating pregnancy, third trimester; B37.3 Candidiasis of vulva and vagina; Z3A.37 37 weeks gestation of pregnancy
CPT/HCPCS: 84112; 87661; 87801; 99214

== ENCOUNTER 2021-07-12 08:00 | Outpatient (CLI) | payer OTHER ==
[2021-07-12 17:48] LABS: BACTERIAL VAGINOSIS DNA POSITIVE (NEGATIVE); CANDIDA GLABRATA DNA NEGATIVE (NEGATIVE); CANDIDA GROUP DNA NEGATIVE (NEGATIVE); CANDIDA KRUSEI DNA NEGATIVE (NEGATIVE); TRICHOMONAS VAGINALIS DNA NEGATIVE (NEGATIVE)
== END 2021-07-12 23:59 ==
LOC: LAB.R 08:00
PROVIDERS: ATTEND Physician Assistant Medical
DX: Z11.3 Encounter for screening for infections with a predominantly sexual mode of transmission (principal)
CPT/HCPCS: 87661; 87801

== ENCOUNTER 2022-04-18 08:00 | Outpatient (CLI) | payer OTHER ==
[2022-04-20 16:28] LABS: CHLAMYDIA TRACHOMATIS DNA NEGATIVE (NEGATIVE); NEISSERIA GONORRHOEAE DNA NEGATIVE (NEGATIVE); TRICHOMONAS VAGINALIS DNA NEGATIVE (NEGATIVE)
== END 2022-04-18 23:59 | disposition home or self-care (01) ==
LOC: LAB.N 08:00
PROVIDERS: ATTEND Physician Assistant Medical
DX: R30.0 Dysuria (principal)
CPT/HCPCS: 87086; 87181; 87491; 87591; 87661